=== PATIENT | female | born 1945 | race Caucasian/White ===

== ENCOUNTER 2022-07-21 13:43 | Emergency (ER) | payer OTHER ==
[~2022-07-21] VITALS: Ht 157.5 cm; Wt 50.3 kg
== END 2022-07-21 17:02 | disposition home or self-care (01) ==
LOC: ER 13:43
DX: S80.01XA Contusion of right knee, initial encounter (principal); W18.39XA Other fall on same level, initial encounter; Y93.89 Activity, other specified; Y92.488 Other paved roadways as the place of occurrence of the external cause; Y99.9 Unspecified external cause status; Z88.8 Allergy status to other drugs, medicaments and biological substances